=== PATIENT | male | born 1990 | race Caucasian/White ===

== ENCOUNTER → 2020-10-23 | Outpatient (CLI) | payer BC ==
[2020-10-23 17:30] LABS: HEMATOCRIT 54.2 % (42.0-52.0); HEMOGLOBIN 18.1 g/dL (13.5-18.0)
== END ==
LOC: LAB 17:14
PROVIDERS: Dermatology
DX: Z01.89 Encounter for other specified special examinations (principal)

== ENCOUNTER → 2020-11-06 | Outpatient (CLI) | payer BC ==
[2020-11-06 16:28] LABS: HEMATOCRIT 50.7 % (42.0-52.0); HEMOGLOBIN 16.8 g/dL (13.5-18.0)
== END ==
LOC: LAB 16:19
DX: Z01.89 Encounter for other specified special examinations (principal)

== ENCOUNTER → 2021-07-29 | Outpatient (CLI) | payer BC ==
[2021-07-29 17:54] LABS: HEMOGLOBIN 17.3 g/dL (13.5-18.0)
== END ==
LOC: LAB 17:37
DX: Z01.89 Encounter for other specified special examinations (principal)

== ENCOUNTER → 2021-11-19 | Outpatient (CLI) | payer BC ==
[2021-11-19 17:44] LABS: HEMATOCRIT 52.8 % (42.0-52.0); HEMOGLOBIN 17.7 g/dL (13.5-18.0)
== END ==
LOC: LAB 17:24
PROVIDERS: Nurse Practitioner Family
DX: Z01.89 Encounter for other specified special examinations (principal)